=== PATIENT | female | born 1995 | race Two or more races ===

== ENCOUNTER 2024-07-12 09:34 | Outpatient (RCR) | payer MEDICAID, SELFPAY ==
--- NOTE | 2024-07-08 09:48 | XR_ITS ---
Examination: Biophysical profile, ultrasound Date and time of exam: July 08, 2024 0954 hours INDICATIONS: Diagnosis pelvic pain several months, diagnosis polyhydramnios Technique: Multiple transabdominal sonographic images of the pelvis abdomen obtained. Attention is directed to the breathing movement, gross body movement, amniotic fluid volume and tone. Findings: Amniotic fluid index 22.7 cm Total biophysical profile is 8 of 8. breathing movement is 2. Gross body movement is 2. tone is 2. Qualitative amniotic fluid volume is 2 Impression: Biophysical profile is 8 of 8.
[2024-07-08 11:34] VITALS: BP 131/64; PULSE 110; RESP 18; TEMP 36.4
--- NOTE | 2024-07-12 09:40 | XR_ITS ---
Examination: Biophysical profile, ultrasound Date and time of exam: July 12, 2024 at 0952 hours INDICATIONS: Diagnosis polyhydramnios, pelvic pain 4 months, amniotic fluid index 22.7 cm on July 08, 2024 Technique: Multiple transabdominal sonographic images of the pelvis abdomen obtained. Attention is directed to the breathing movement, gross body movement, amniotic fluid volume and tone. Findings: Amniotic fluid index 18.9 cm Total biophysical profile is 8 of 8. breathing movement is 2. Gross body movement is 2. tone is 2. Qualitative amniotic fluid volume is 2 Impression: Biophysical profile is 8 of 8.
[2024-07-12 10:37] VITALS: BP 138/68; PULSE 96; RESP 18; TEMP 36.7
== END 2024-07-12 23:59 | disposition home or self-care (01) ==
LOC: S4S1 09:34
PROVIDERS: PCP Family Medicine; Referring Provider Student in an Organized Health Care Education/Training Program; Visit Provider Student in an Organized Health Care Education/Training Program
DX: O40.3XX0 Polyhydramnios, third trimester, not applicable or unspecified (principal); Z3A.38 38 weeks gestation of pregnancy
CPT/HCPCS: 59025; 76819

== ENCOUNTER 2024-07-13 05:59 | Inpatient (IN) | payer MEDICAID, SELFPAY ==
[2024-07-13] VITALS (34 sets, daily range): BP systolic 101–135; BP diastolic 59–85; PULSE 86–108; RESP 17–22; TEMP 36.7–37.1; O2SAT 94–100; BMI 44.2
[2024-07-13 06:24] LABS: Basophils % (Auto) 0 % (0-2.5); Eosinophils # (Auto) 0.1 Thou/mm3 (0.0-0.5); Eosinophils % (Auto) 1 % (0-10); Hematocrit 32.5 % (36.0-46.0); Hemoglobin 10.6 g/dL (12.0-16.0); Immature Granulocytes % (Auto) 1 % (0-0); Immature Granulocytes Auto 0.05 Thou/mm3 (0.00-0.00); Lymphocytes # (Auto) 2.5 Thou/mm3 (1.0-4.8); Lymphocytes % (Auto) 31 % (10-50); Mean Corpuscular HGB Conc 32.6 g/dl (31.0-37.0); Mean Corpuscular Hemoglobin 26.3 pg (25.0-35.0); Mean Corpuscular Volume 81 fL (80-100); Monocytes # (Auto) 0.7 Thou/mm3 (0.0-0.8); Monocytes % (Auto) 8 % (0-12); Neutrophils # (Auto) 4.7 Thou/mm3 (1.8-7.7); Neutrophils % (Auto) 59 % (37-80); Nucleated Red Blood Cell % 0 /100 WBC (0); Platelet Count 339 Thou/mm3 (140-440); RDW Standard Deviation 40.4 fL (36.4-46.3); Red Blood Count 4.03 Miln/mm3 (4.00-5.20); White Blood Count 8.1 Thou/mm3 (3.6-11.0)
[2024-07-13 06:59] LABS: Syphilis Nonreactive (Nonreactive)
[2024-07-13] MEDS: METOCLOPRAMIDE INJ 5 MG/ML VIAL 2 ML IVP (07:20)
[2024-07-13] MEDS: CITRIC ACID/SODIUM CITR 15 ML UDC (BICITRA) 30 ML PO (07:21)
[2024-07-13] MEDS: FAMOTIDINE INJ 10 MG/ML VIAL 2 ML 20 MG IV (07:21)
[2024-07-13] MEDS: ceFAZolin/D5W 2 GM IV 2 GM/100 ML BAG IV (07:22)
--- NOTE | 2024-07-13 07:55 | PD.LDHP ---
Documentation for date of: 07/13/24 OB Labor/Induct. HPI History of Present Illness : 3 History of sections: Yes History of present illness: 29-year-old 3 para 2-0-0-2 at 39 weeks and 1 day admitted for repeat low-transverse . Patient denies any contractions, leaking, bleeding. This has been affected by polyhydramnios and macrosomia History of Present Dating criteria: LMP confirmed by 2nd trimester US Adequate Care: Yes Abnormal ultrasound findings: Anatomy within normal limit, polyhydramnios, anterior placenta low suspicion of PAS Labs Narrative: NIPT within normal limits GTT within normal limits Past Medical History Surgical History SURGICAL: Positive Section Meds Home Medications and Allergies Home Medications ?Medication ?Instructions ?Recorded ?Confirmed ?Type vit no.95-ferrous 1 tab PO QDAY 08/02/22 07/13/24 History fumarate 28 mg-folic acid 800 mcg tablet () Allergies Allergy/AdvReac Type Severity Reaction Status Date / Time No Known Allergies Allergy Verified 07/13/24 05:57 OB Exam Physical Exam Vital signs: Pulse BP Pulse Ox 100 127/78 97 07/13/24 06:09 07/13/24 06:09 07/13/24 07:43 Constitutional Constitutional: no acute distress Routine HEENT Exam Head: Present normocephalic and atraumatic Eye: Present EOMI and PERRL ENT: Present mucous membranes moist Routine Neck Exam Neck: Present supple and trachea midline Routine Cardiovascular Exam Cardiovascular: Present RRR Routine Abdominal Exam Abdominal: Present soft and normoactive bowel sounds Detailed Labor and Delivery Exam Comments: Closed heart tone category 1 Routine Extremities Exam Extremities: Present full ROM Routine Skin Exam Skin: Present intact, dry and warm Routine Neurological Exam Neurological: Present alert, oriented X3 and CN II-XII intact Routine Psychiatric Exam Psychiatric: Present normal affect and normal thought process OB Results Labs 07/13/24 05:45 Labs: Short CBC 07/13/24 Range/Units 05:45 WBC 8.1 (3.6-11.0) Thou/mm3 Hgb 10.6 L (12.0-16.0) g/dL Hct 32.5 L (36.0-46.0) % Plt Count 339 (140-440) Thou/mm3 Impressions Impression: 29-year-old 3 para 2-0-0-2 at 39 weeks and 1 day admitted for repeat low-transverse Hemoglobin 10.6 Polyhydramnios noted GTT within normal OB Assessment & Plan Additional Plan Additional Plan Comment: Admitted for repeat low-transverse Antibiotic prophylaxis DVT prophylaxis
[2024-07-13] MEDS: OXYTOCIN in NS 20 units 20 UNIT/1,000 ML BAG 125 UNIT IV ×2 (09:40→14:51)
[2024-07-13] MEDS: TRANEXAMIC ACID 1,000 MG IVPB 1,000 MG/100 ML BAG 200 MG IV (10:00)
[2024-07-13] MEDS: ACETAMINOPHEN IVPB 1,000 MG/100 ML VIAL 250 MG IV (10:35)
[2024-07-13] MEDS: fentaNYL CIT INJ 50 mCg/ML AMP 2ML IV (12:15)
[2024-07-13 13:56] LABS: Basophils % (Auto) 0 % (0-2.5); Eosinophils % (Auto) 0 % (0-10); Hematocrit 31.6 % (36.0-46.0); Hemoglobin 10.4 g/dL (12.0-16.0); Immature Granulocytes % (Auto) 1 % (0-0); Lymphocytes # (Auto) 1.2 Thou/mm3 (1.0-4.8); Lymphocytes % (Auto) 8 % (10-50); Mean Corpuscular HGB Conc 32.9 g/dl (31.0-37.0); Mean Corpuscular Hemoglobin 26.5 pg (25.0-35.0); Mean Corpuscular Volume 80 fL (80-100); Monocytes # (Auto) 0.9 Thou/mm3 (0.0-0.8); Monocytes % (Auto) 6 % (0-12); Neutrophils # (Auto) 13.2 Thou/mm3 (1.8-7.7); Neutrophils % (Auto) 86 % (37-80); Nucleated Red Blood Cell % 0 /100 WBC (0); Platelet Count 314 Thou/mm3 (140-440); Red Blood Count 3.93 Miln/mm3 (4.00-5.20); White Blood Count 15.4 Thou/mm3 (3.6-11.0)
--- NOTE | 2024-07-13 16:09 | PD.LDDELS ---
Data (Garcia) Data Hx Section: Yes Para: 2 Delivery Data (Garcia) Labor Data ROM Date: 07/13/24 ROM Time: 08:39 Rupture Type: AROM Delivery Data Labor Onset Stage 1 Date: 07/13/24 Labor Onset Stage 1 Time: 08:41 Labor Onset Stage 2 Date: 07/13/24 Labor Onset Stage 2 Time: 08:41 Delivery Date: 07/13/24 Delivery Time: 08:41 Gestational age (weeks): 39 Gestational age (days): 1 Placenta Delivery Date: 07/13/24 Placenta Delivery Time: 08:43 Delivered by: Kun Amaral Delivery nurse: Selena Banuelos Other staff at delivery: Nurse Other staff at delivery: Nursery Nurse Other staff at delivery: Rosanna Vizcarra Other staff at delivery: Cheyenne Raman Delivery Method Delivery: Delivery Type: Repeat Anesthesia Type Primary Anesthesia: Spinal Delivery Room Medications Other Intrapartum Medications: Yes Placenta Placenta Delivery: Manual Cord Sample: Cord Blood Obtained EBL Estimated blood loss (ml): 500 Umbilical Cord Umbilical Vessels: 3 Nuchal Cord: None Body Cord: None Schwertner Data (Garcia) Schwertner Data Infant Gender: Male Weight Grams: 3850 1 Minute Total: 9 5 Minute Total: 9
--- NOTE | 2024-07-13 16:12 | PD.GYNPROC ---
Operative Note - ORDER ENTRY TECHNICIAN Procedure Date of procedure: 07/13/24 Procedure Performed: Repeat low-transverse Indication: Previous x 2 Polyhydramnios Macrosomia Maternal morbid obesity Pre-Op diagnosis: Same Post-Op diagnosis: Extensive adhesions involving anterior surface of uterus bladder and omentum Anesthesia type: Spinal Procedure description: Informed consent was obtained and the patient was taken to the operating room.? Identity was confirmed by double identifiers and she was placed on the operating table.The abdomen and perineum were prepped in the usual sterile fashion and a Sanchez catheter was placed to continuous drainage.? Sterile drapes were applied.??A Pfannenstiel skin incision was made with a scalpel and carried to the subcutaneous fat up to the rectus fascia.? The rectus fascia was incised on either side of the midline and the incisions were extended bilaterally.? The fascia was gently dissected off the ventral surface of the rectus muscle both superiorly and inferiorly. Carefully a peritioneal window craeted hysterotomy incision made .upon examination circumferentially with the finger there with extensive adhesions between the anterior uterine wall and bladder .omental adhesions also seen to the anterior surface of the uterus . Using very small incisions with Metzenbaums forcep slow adhesiolysis was done and bladder flap was created . Omental adhesions were and hemostasis maintained by using plain gut free-tie . After ruling out any other adhesions , peritoneal window was extended bluntly with finger. Rupture of membranes revealed clear fluid. The baby was found in cephalic position. Given polyhydramnios. Head was found to be floating. With fundal pressure given by the family services assistant the head was stabilized and vacuum applied making sure no uterine wall is impinged with the vacuum. Pressure increased to 40 mmHg and steady pull x 1 successfully delivered the head. Thereafter the umbilical cord , was doubly clamped, divided and the was handed over to the waiting team.? placenta delivered by controlled cord traction . The interior of the uterus was now thorougly cleaned of all blood and debris and membranes.? 2 cavities and the uterus verified the? hysterotomy was closed using 0 vicryl suture in double layers. Once the repair was completed the hysterotomy was inspected, was noted to be adequately hemostatic . Muscle oozing stopped by bovie. The rectus fascia was repaired using Vicry 0 in a running fashion.? The subcutaneous layer was now, approximated with 3-0 vicryl in double layers.? All bleeding points were cauterized using the Bovie.?The skin was closed using 4-0 Monocryl in a subcuticular fashion.? The skin was cleaned and a sterile dressing was applied. The patient was now undraped, the abdomen and back were thoroughly cleaned and she was now transferred to the recovery room in a stable Estimated blood loss (ml): 500 Complications: none Surgical staff Operation Date: 07/26/24 07:45 <No data on this case meets the specified criteria> Diagnosis Problem List Completed Was Problem List Reviewed/Reconciled?: Yes
[2024-07-13] MEDS: IBUPROFEN TAB 400 MG TABLET 800 MG PO (19:37)
[2024-07-13] MEDS: ONDANSETRON INJ 2 MG/ML INJ 2 ML 4 MG IV (20:02)
[2024-07-13] MEDS: HYDROcodone/APAP 5/325 TABLET 2 TAB PO (23:48)
[2024-07-14 00:04] VITALS: BP 106/73; PULSE 105; RESP 19; TEMP 36.6; O2SAT 97
[2024-07-14 04:40] VITALS: BP 105/58; PULSE 107; RESP 20; TEMP 36.4; O2SAT 98
[2024-07-14] MEDS: IBUPROFEN TAB 400 MG TABLET 800 MG PO ×2 (04:46→17:22)
[2024-07-14 08:00] VITALS: BP 105/66; PULSE 109; RESP 18; TEMP 36.6; O2SAT 96
--- NOTE | 2024-07-14 08:05 | PD.LDPPPRG ---
Subjective Subjective Interval history: Patient was seen at the bedside is doing well. Denies any fever, nausea vomiting. Patient has been tolerating diet. Has limited ambulation and not passed gas yet Exam Vital Signs Temp Pulse Resp BP Pulse Ox O2 Del Method 97.6 F 107 H 20 105/58 L 98 Room Air 07/14/24 04:40 07/14/24 04:40 07/14/24 04:40 07/14/24 04:40 07/14/24 04:40 07/14/24 04:40 Constitutional Constitutional: no acute distress Routine HEENT Exam Head: Present normocephalic and atraumatic Eye: Present EOMI and PERRL ENT: Present mucous membranes moist Routine Neck Exam Neck: Present supple and trachea midline Routine Respiratory Exam Respiratory: Present chest non-tender, lungs clear, normal breath sounds and no resp distress Routine Cardiovascular Exam Cardiovascular: Present RRR Routine Abdominal Exam Abdominal: Present soft and normoactive bowel sounds Routine Extremities Exam Extremities: Present full ROM Routine Skin Exam Skin: Present intact, dry and warm Routine Neurological Exam Neurological: Present alert, oriented X3 and CN II-XII intact Routine Psychiatric Exam Psychiatric: Present normal affect and normal thought process Objective Labs 07/13/24 13:40 Labs: Laboratory Results - last 24 hr 07/13/24 07/13/24 05:45 13:40 WBC 15.4 H D RBC 3.93 L Hgb 10.4 L Hct 31.6 L MCV 80 MCH 26.5 MCHC 32.9 RDW Std Deviation 41.0 Plt Count 314 Neut % (Auto) 86 H Lymph % (Auto) 8 L [place] % (Auto) 6 Eos % (Auto) 0 Baso % (Auto) 0 Neut # (Auto) 13.2 H Lymph # (Auto) 1.2 [place] # (Auto) 0.9 H Eos # (Auto) 0.0 Baso # (Auto) 0.0 Immature Gran # (Auto) 0.10 H Absolute Nucleated RBC 0.00 Immature Gran % 1 H Nucleated RBC % 0 Blood Type O Positive Antibody Screen NEGATIVE Assessment & Plan Assessment Comment Assessment comment: 29-year-old status post repeat low-transverse , postop day 1 Vital signs stable Hemoglobin postop was 10.4 Meeting appropriate postop milestones Plan Comment Plan Comment: Continue postop care Anticipate discharge tomorrow Time Spent With Patient Time: Total time spent is greater than 50% in coordination of care (as documented) at patient's floor/unit and/or counseling patient:
[2024-07-14 11:40] VITALS: BP 111/69; PULSE 111; RESP 19; TEMP 36.4; O2SAT 98
[2024-07-14] MEDS: HYDROcodone/APAP 5/325 TABLET 2 TAB PO ×2 (11:44→20:55)
[2024-07-14 12:25] LABS: Basophils % (Auto) 0 % (0-2.5); Eosinophils # (Auto) 0.1 Thou/mm3 (0.0-0.5); Eosinophils % (Auto) 1 % (0-10); Hematocrit 29.1 % (36.0-46.0); Hemoglobin 9.4 g/dL (12.0-16.0); Immature Granulocytes % (Auto) 1 % (0-0); Immature Granulocytes Auto 0.06 Thou/mm3 (0.00-0.00); Lymphocytes # (Auto) 1.4 Thou/mm3 (1.0-4.8); Lymphocytes % (Auto) 15 % (10-50); Mean Corpuscular HGB Conc 32.3 g/dl (31.0-37.0); Mean Corpuscular Hemoglobin 26.3 pg (25.0-35.0); Mean Corpuscular Volume 82 fL (80-100); Monocytes # (Auto) 0.7 Thou/mm3 (0.0-0.8); Monocytes % (Auto) 7 % (0-12); Neutrophils # (Auto) 7.1 Thou/mm3 (1.8-7.7); Neutrophils % (Auto) 76 % (37-80); Nucleated Red Blood Cell % 0 /100 WBC (0); Platelet Count 295 Thou/mm3 (140-440); RDW Standard Deviation 41.7 fL (36.4-46.3); Red Blood Count 3.57 Miln/mm3 (4.00-5.20); White Blood Count 9.4 Thou/mm3 (3.6-11.0)
[2024-07-14 18:11] VITALS: BP 112/64; PULSE 102; RESP 17; TEMP 37.1; O2SAT 97
[2024-07-14 20:00] VITALS: BP 115/70; PULSE 106; RESP 18; TEMP 36.6
[2024-07-14] MEDS: DOCUSATE SOD 100 MG CAPSULE PO (21:43)
[2024-07-14] MEDS: SIMETHICONE 80 MG CHEW PO (21:43)
[2024-07-15] VITALS (10 sets, daily range): BP systolic 114–123; BP diastolic 65–80; PULSE 96–112; RESP 14–19; TEMP 36.4–36.8; O2SAT 96–98
[2024-07-15] MEDS: ACETAMINOPHEN 325 MG TABLET 650 MG PO ×4 (00:08→18:00)
[2024-07-15] MEDS: IBUPROFEN TAB 600 MG TABLET PO ×3 (00:58→19:38)
[2024-07-15] MEDS: DIPHTH,PERTUSS(ACELL),TET VAC 0.5 ML SYR IMi (09:26)
[2024-07-15] MEDS: DOCUSATE SOD 100 MG CAPSULE PO ×2 (09:26→21:18)
[2024-07-15] MEDS: INFLUENZA VIRUS QUADRIVALENT 0.5 ML SYRINGE IMi (09:27)
[2024-07-15 18:17] LABS: Basophils % (Auto) 0 % (0-2.5); Eosinophils # (Auto) 0.2 Thou/mm3 (0.0-0.5); Eosinophils % (Auto) 2 % (0-10); Hematocrit 29.4 % (36.0-46.0); Hemoglobin 9.7 g/dL (12.0-16.0); Immature Granulocytes % (Auto) 1 % (0-0); Lymphocytes # (Auto) 1.9 Thou/mm3 (1.0-4.8); Lymphocytes % (Auto) 19 % (10-50); Mean Corpuscular Hemoglobin 26.9 pg (25.0-35.0); Mean Corpuscular Volume 81 fL (80-100); Monocytes # (Auto) 0.5 Thou/mm3 (0.0-0.8); Monocytes % (Auto) 5 % (0-12); Neutrophils % (Auto) 73 % (37-80); Nucleated Red Blood Cell % 0 /100 WBC (0); Platelet Count 329 Thou/mm3 (140-440); RDW Standard Deviation 41.4 fL (36.4-46.3); Red Blood Count 3.61 Miln/mm3 (4.00-5.20); White Blood Count 9.7 Thou/mm3 (3.6-11.0)
--- NOTE | 2024-07-15 19:55 | PC.NURSE ---
@1954 Dr. Amaral called to inform of lab results and current status of pt. Per Dr. Amaral, keep the pt for further monitoring tonight and cancel discharge order placed in earlier.
[2024-07-16 03:33] VITALS: BP 120/77; PULSE 98; RESP 16; TEMP 36.6; O2SAT 96
[2024-07-16] MEDS: IBUPROFEN TAB 600 MG TABLET PO (06:35)
[2024-07-16] MEDS: ACETAMINOPHEN 325 MG TABLET 650 MG PO (06:36)
[2024-07-16 08:15] VITALS: BP 113/74; PULSE 88; RESP 17; TEMP 36.5; O2SAT 98
[2024-07-16] MEDS: DOCUSATE SOD 100 MG CAPSULE PO (08:31)
--- NOTE | 2024-07-16 08:41 | ESDS_ITS ---
DS: Providers Provider Date of admission: 07/13/24 05:59 Primary care physician: Stas Diamond MD Admitting Provider: Kun Amaral MD Attending Provider on Admission: Kun Amaral MD Consults: 07/13/24 07:57 Referral Routine Comment: Attending Provider on DC: Phoebe Ventura MD Discharging Provider: Phoebe Ventura MD Anticipated date of discharge: 07/16/24 DS: Diagnosis Discharge Diagnosis (1) delivery delivered: Status: Acute (2) Anemia affecting : Status: Acute Problem List Completed Was Problem List Reviewed/Reconciled?: Yes Summary/Hosp Course Brief History: 29-year-old 3 para 2-0-0-2 at 39 weeks and 1 day admitted for repeat low-transverse . Patient denies any contractions, leaking, bleeding. This has been affected by polyhydramnios and macrosomia Peripartum Data Delivery Method: Low Transverse Procedures: Procedures Operation Date: 07/13/24 07:45 Actual Procedure Side Surgeon p in OB Not Applicable Kun Amaral MD Operation Date: 07/26/24 07:45 <No data on this case meets the specified criteria> complications: other (Tachycardia. Anemia, status posttransfusion of 1 unit packed red blood cells) Status at Discharge Cognitive/behavioral status at discharge: Patient is alert and orient x 3 in apparent distress. Ready to be discharged. She will pump her breatmilk Functional status at discharge: independent ambulation Overall status at discharge: patient is progressing back to baseline Time Spent with Patient Time attestation: Total time spent providing and/or coordinating discharge services: Time spent: Less than 30 minutes Specific discharge activities: No heavy lifting, intercourse, douching, heavy exercise or bath tubs for six weeks. F/U in clinic in 1 and 6 weeks. Exam Vital Signs Temp Pulse Resp BP Pulse Ox O2 Del Method 97.8 F 98 16 120/77 96 Room Air 07/16/24 03:33 07/16/24 03:33 07/16/24 03:33 07/16/24 03:33 07/16/24 03:33 07/16/24 03:33 Constitutional Constitutional: no acute distress and cooperative Comments: Alert and orientated x 3, doing well. Wants to go home. Routine Abdominal Exam Abdominal: Present soft and normoactive bowel sounds Comments: Incision clean dry and intact fundus firm Routine Extremities Exam Extremities: Present full ROM Routine Skin Exam Skin: Present intact, dry and warm Routine Psychiatric Exam Psychiatric: Present normal affect and normal thought process Discharge Plan Plan Patient Disposition: HOME (Self Care) Disposition Comment: stable Prescriptions/Referrals Prescriptions/Med Rec: New acetaminophen 325 mg Tablet 650 mg PO Q4H PRN (Reason: See Comments) Qty: 90 0RF ibuprofen 400 mg Tablet 800 mg PO Q8H PRN (Reason: See Comments) Qty: 90 0RF Discontinued acetaminophen-codeine 300-15 mg tablet 1 tab PO Q12H PRN (Reason: pain) Qty: 14 0RF acetaminophen 650 mg tablet extended release 650 mg PO Q12H PRN (Reason: fever or pain) Qty: 60 0RF No Action ibuprofen 800 mg tablet 800 mg PO Q8H PRN (Reason: pain) Qty: 30 0RF PNV cmb#95-ferrous fumarate-FA [] 28 mg iron- 800 mcg tablet 1 tab PO QDAY Patient Comments: TAKE 1 TABLET BY MOUTH EVERY DAY Referrals: Stas Diamond MD [Primary Care Provider] - Patient/Caregiver Discharge Instructions Discharge Activity: resume usual activities Education Materials: Understanding Blues, Nutrition While , C Section Dc Print Language: Indonesian Stand Alone Forms: Katerina Award Info., Patient Portal Info Letter Vaccines Vaccines Given During Stay: Influenza and TDaP Discharge Order Discharge Orders: Discharge (Routine); Ordered 07/16/24 Ordered By: Phoebe Ventura Planned Discharge Date 07/16/24 (2) Anemia affecting Qualifiers: Trimester: third trimester Qualified Code(s): O99.013 - Anemia complicating , third trimester
== END 2024-07-16 11:16 | disposition home or self-care (01) | DRG 540 ==
LOC: S4SX 06:21 → S4NX 08:17
PROVIDERS: Admitting Provider Student in an Organized Health Care Education/Training Program; PCP Family Medicine; Visit Provider Student in an Organized Health Care Education/Training Program
PROC: 10D00Z1 Extraction of Products of Conception, Low, Open Approach (ICD-10-PCS; CPT 59514; principal; 2024-07-13 07:30)
DX: O34.211 Maternal care for low transverse scar from previous cesarean delivery (principal); O40.3XX0 Polyhydramnios, third trimester, not applicable or unspecified; Z3A.39 39 weeks gestation of pregnancy; Z37.0 Single live birth; O99.214 Obesity complicating childbirth; E66.01 Morbid (severe) obesity due to excess calories; O36.63X0 Maternal care for excessive fetal growth, third trimester, not applicable or unspecified; O99.02 Anemia complicating childbirth; K66.0 Peritoneal adhesions (postprocedural) (postinfection); D64.9 Anemia, unspecified
CPT/HCPCS: 36415; 85025; 86780; 86850; 86900; 86901; 86923; 90686; 90715; A4649; J0131; J0689; J2250; J2274; J2371; J2405; J2590; J2765; J3010; J3490; P9016; A9270; J2270; J9060

== ENCOUNTER 2025-02-11 14:35 | Emergency (ER) | payer MEDICAID, SELFPAY ==
[2025-02-11 14:36] VITALS: BMI 38.7
[2025-02-11 15:05] VITALS: BP 157/84; PULSE 109; RESP 18; TEMP 36.9; O2SAT 98
--- NOTE | 2025-02-11 15:26 | XR_ITS ---
Examination: Complete OB ultrasound, less than 14 weeks, transabdominal Date and time of exam: February 11, 2025, 6003 hours INDICATIONS: Vaginal bleeding beginning 3 weeks ago Technique: Obstetrical ultrasound images less than 14 weeks performed via transabdominal imaging Findings: Uterus 11.7 cm no uterine mass or intrauterine gestation Endometrial stripe 0.4 cm Right ovary 2.9 cm arterial flow. Left ovary 2.7 cm arterial flow IMPRESSION: No discrete uterine mass No intrauterine gestation
--- NOTE | 2025-02-11 15:26 | EKG_ITS ---
[facility] Test Date: 2025-02-11 Pat Name: KAL WHITE Department: Room: - Gender: Female [employer] Operator: : 1995 Requested By: Giorgio Dumont Order Number: [id number] Reading MD: Giorgio Dumont Measurements Intervals Davin Rate: 99 P: 55 WA: 167 QRS: 7 QRSD: 94 T: 27 QT: 338 QTc: 435 Interpretive Statements SINUS RHYTHM POSSIBLE LEFT ATRIAL ENLARGEMENT [-0.1mV P-WAVE IN V1/V2] LOW QRS VOLTAGE IN PRECORDIAL LEADS [QRS DEFLECTION < 1.0 mV IN CHEST LEADS] POSSIBLE RIGHT VENTRICULAR CONDUCTION DELAY [RSR (QR) IN V1/V2] No previous ECG available for comparison /store/[email or web address]/[id number].pdf
--- NOTE | 2025-02-11 15:26 | XR_ITS ---
Examination: Abdomen sonogram, Limited Date and time of exam: February 11, 2025, 1558 hours INDICATIONS: Abdominal and right shoulder pain today Technique: Real-time oliva scale transabdominal sonographic images of the upper abdomen obtained. Findings: Normal gallbladder. Normal common bile duct 0.4 cm Pancreatic head 2.6 cm Liver 19.1 cm fatty infiltration no focal liver lesions Normal hepatopedal portal venous flow Patent IVC IMPRESSION: Normal gallbladder Moderate hepatomegaly fatty infiltration no focal liver lesions
--- NOTE | 2025-02-11 15:31 | PD.EDCHEST ---
ED Chest Pain RME/HPI General Chief Complaint: Extremity Injury, Upper Stated Complaint: RIGHT SHOULDER PAIN X 1 WEEK Time Seen by Provider: 02/11/25 15:13 Arrival date/time: 02/11/25 14:35 29-year-old female G4 A1 with 3 living babies all delivered via whose last menstrual period was November 24 was seen at a clinic in [place] with an ultrasound which did not show a fetus in her uterus and was advised that it may be too early however she could have an ectopic and was supposed to follow-up a week after however patient began bleeding shortly after being seen in the clinic and she suspected she was passing a miscarriage. Patient's bleeding had just stopped yesterday. Patient began to feel right upper chest pain which is pleuritic in nature. Patient states pain is not reproducible or worse with certain movements. Denies pelvic pain, fever, vomiting, shortness of breath. Limitations: no limitations Related Data Home Medications ?Medication ?Instructions ?Recorded ?Confirmed vit no.95-ferrous 1 tab PO QDAY 08/02/22 07/13/24 fumarate 28 mg-folic acid 800 mcg tablet () Previous Rx's ?Medication ?Instructions ?Recorded ibuprofen 800 mg tablet 800 mg PO Q8H PRN pain #30 tabs 10/17/22 acetaminophen 325 mg tablet 650 mg (2 x 325 mg) PO Q4H PRN See 07/16/24 Comments #90 tabs ibuprofen 400 mg tablet 800 mg (2 x 400 mg) PO Q8H PRN See 07/16/24 Comments #90 tabs Allergies Allergy/AdvReac Type Severity Reaction Status Date / Time No Known Allergies Allergy Verified 07/13/24 05:57 Review of Systems Cardiovascular Cardiovascular: Reports chest pain, Denies dyspnea, Denies leg edema and Denies paroxysmal nocturnal dyspnea Respiratory Respiratory: Denies dyspnea Genitourinary Genitourinary: Denies urinary hesitancy, Denies urinary urgency and Denies vaginal discharge Musculoskeletal Musculoskeletal: Denies muscle weakness, Denies numbness and Denies tingling Neurologic Neurologic: Denies numbness and Denies tingling ED Exam General Limitations: Present no limitations General appearance: Present alert and in no apparent distress Head Head exam: Present atraumatic Eye Eye exam: Present normal appearance, PERRL and EOMI ENT ENT exam: Present normal exam, normal oropharynx and mucous membranes moist Neck Neck exam: Present normal inspection, full ROM and trachea midline Chest Chest inspection: Present normal inspection and symmetric chest wall rise Respiratory Respiratory exam: Present normal lung sounds bilaterally Cardiovascular Cardiovascular exam: Present regular rate, normal rhythm and normal heart sounds Abdominal Exam Abdominal exam: Present soft and normal bowel sounds Extremities Exam Extremities exam: Present normal inspection (No gross deformity of R shoulder. NTTP to R shoulder. FROM, Strength 5/5, SILT to R shoulder. ) Back Exam Back exam: Present normal inspection and full ROM Neurological Exam Neurological exam: Present alert, oriented X3 and CN II-XII intact Psychiatric Psychiatric exam: Present normal affect and normal mood Skin Skin exam: Present warm, dry, intact and normal color Course Quality Measures none Orders Category Date Time Status EKG (ED ONLY) *Do not use* NOW Care 02/11/25 15:28 Completed EKG (ED Only) Stat Exams 02/11/25 15:26 Draft US OB <= 14 weeks fetus Stat Exams 02/11/25 15:26 Ordered US abdomen limited Stat Exams 02/11/25 15:26 Ordered XR chest 1V portable Stat Exams 02/11/25 16:01 Ordered ABO/RH Type Stat Lab 02/11/25 15:26 Ordered Amylase Stat Lab 02/11/25 15:57 Received Beta HCG,Quantitative Stat Lab 02/11/25 15:57 Received CBC Stat Lab 02/11/25 15:57 Completed CMP [Comprehensive Metabolic Panel] Stat Lab 02/11/25 15:57 Received D-Dimer Stat Lab 02/11/25 15:57 Received UA, C/S IF [Urinalysis, C/S if Indicated] Stat Lab 02/11/25 15:42 Received Acetaminophen Tab [Tylenol Tab] Med 02/11/25 16:04 Discontinued 650 mg PO X1 ONE Vital Signs Vital signs: Vital Signs Temperature 98.4 F 02/11/25 15:05 Pulse Rate 109 H 02/11/25 15:05 Respiratory Rate 18 02/11/25 15:05 Blood Pressure 157/84 H 02/11/25 15:05 Pulse Oximetry (%) 98 02/11/25 15:05 Oxygen Delivery Method Oxy Mask 02/11/25 15:05 Chest Pain Patient data External records reviewed:: [facility] previous records Clinical information provided by:: patient Social determinants that could affect healthcare access:: none Patient has the following chronic illnesses:: no chronic illness How is presenting disease/condition affected by chronic disease/condition?: no chronic disease Evaluation data The following diagnostics were reviewed and interpreted by me:: lab results, radiology exam(s) and EKG tracing(s) Lab and/or radiology exams considered but not ordered:: labs and radiology exams considered Medications / Prescriptions Medication administrations:: Medication Administration History Discontinued Medications Acetaminophen (Acetaminophen 325 Mg Tablet) 650 mg PO X1 ONE Stop: 02/11/25 16:05 Diagnosis Chest Pain Differential Diagnosis: costochondritis and biliary colic Admission Indicated Admission indicated?: not indicated Admission Request Was there a request for admission?: No Disposition Plan Disposition Plan: Discharge Discharge Attestation Discharge Attestation: The patient and all family members were given an opportunity to ask questions and understood the discharge instructions. Discharge instructions specifically effects, indications for sooner follow up or return to the emergency department, and the expected course of current diagnosis. Patient condition: Stable Discharge Plan Prescriptions/Referrals Prescriptions/Med Rec: No Action ibuprofen 800 mg tablet 800 mg PO Q8H PRN (Reason: pain) Qty: 30 0RF PNV no.95-ferrous fumarate-FA [] 28 mg iron- 800 mcg tablet 1 tab PO QDAY Patient Comments: TAKE 1 TABLET BY MOUTH EVERY DAY acetaminophen 325 mg Tablet 650 mg PO Q4H PRN (Reason: See Comments) Qty: 90 0RF ibuprofen 400 mg Tablet 800 mg PO Q8H PRN (Reason: See Comments) Qty: 90 0RF Referrals: Stas Diamond MD [Primary Care Provider, Family Practice] - In 1 week Patient/Caregiver Discharge Instructions Print Language: Greenlandic
[2025-02-11 15:50] LABS: Collection Type, Urine Clean Catch
--- NOTE | 2025-02-11 16:01 | XR_ITS ---
Examination: PA chest single view TECHNIQUE: Upright PA chest single view Date and time: February 11, 2025 1640 hours INDICATIONS: Chest and shoulder pain beginning one week ago. FINDINGS: Normal heart size No pulmonary edema or lobar pneumonia. The osseous structures are intact IMPRESSION: No lobar pneumonia identified
[2025-02-11 16:16] LABS: Basophils # (Auto) 0.0 Thou/mm3 (0.0-0.2); Basophils % (Auto) 1 % (0-2.5); Eosinophils # (Auto) 0.1 Thou/mm3 (0.0-0.5); Eosinophils % (Auto) 1 % (0-10); Hematocrit 37.3 % (36.0-46.0); Hemoglobin 12.4 g/dL (12.0-16.0); Immature Granulocytes Auto 0.04 Thou/mm3 (0.00-0.00); Lymphocytes # (Auto) 1.6 Thou/mm3 (1.0-4.8); Lymphocytes % (Auto) 24 % (10-50); Mean Corpuscular HGB Conc 33.2 g/dl (31.0-37.0); Mean Corpuscular Hemoglobin 29.5 pg (25.0-35.0); Mean Corpuscular Volume 89 fL (80-100); Monocytes # (Auto) 0.4 Thou/mm3 (0.0-0.8); Monocytes % (Auto) 6 % (0-12); Neutrophils # (Auto) 4.4 Thou/mm3 (1.8-7.7); Neutrophils % (Auto) 68 % (37-80); Nucleated Red Blood Cell # 0.00 Thou/mm3 (0.00-0.00); Nucleated Red Blood Cell % 0 /100 WBC (0); Platelet Count 314 Thou/mm3 (140-440); RDW Standard Deviation 43.5 fL (36.4-46.3); Red Blood Count 4.21 Miln/mm3 (4.00-5.20); White Blood Count 6.5 Thou/mm3 (3.6-11.0)
[2025-02-11 16:20] LABS: Bilirubin,Urine Negative (Negative); Blood,Urine Negative (Negative); Clarity,Urine Clear (Clear/Hazy); Color,Urine Lt-Yellow (Lt Yel-Yel); Culture Indicated,Urine Not Indicated; Glucose, Urine Negative (Negative); Ketones,Urine Negative (Negative); Leukocyte Esterase,Urine Negative (Negative); Nitrite,Urine Negative (Negative); PH,Urine 6.5 (5.0-7.0); Protein,Urine Negative (Neg - Trace); RBC,Urine 2 /hpf (0-3); Specific Gravity,Urine 1.013 (1.001-1.035); Squamous Epithelial Cell,Urine 2 /hpf (0-5); Urobilinogen,Urine Negative mg/dL (0.0-1.0); WBC,Urine 2 /hpf (0-5)
[2025-02-11] MEDS: ACETAMINOPHEN 325 MG TABLET 650 MG PO (16:29)
[2025-02-11 16:34] LABS: Alanine Aminotransferase 19 U/L (10-49); Albumin, Serum 4.5 gm/dL (3.5-5.0); Albumin/Globulin Ratio 1.7 (1.2-2.2); Alkaline Phosphatase 80 U/L (46-116); Amylase 53 U/L (30-118); Anion Gap 9 (7-16); Aspartate Amino Transferase 17 U/L (0-34); BUN/Creatinine Ratio 13 Ratio (12-20); Beta HCG,Quantitative 145 mIU/mL (<5.0); Bilirubin,Total 0.5 mg/dL (0.3-1.2); Blood Urea Nitrogen 9 mg/dL (9-23); Calcium 10.0 mg/dL (8.3-10.6); Calcium (Corrected) 10.0 mg/dL (8.5-10.1); Carbon Dioxide 29.4 mMol/L (20.0-31.0); Chloride 102 mMol/L (98-107); Creatinine (Component) 0.7 mg/dL (0.6-1.3); Estimated Creatinine Clearance 150.8 mL/min (>60); Globulin 2.7 gm/dL (2.3-3.5); Glucose 100 mg/dL (74-106); Osmolality,Calculated 278 (275-295); Potassium 4.4 mMol/L (3.4-5.1); Sodium 140 mMol/L (136-145); Total Protein 7.2 gm/dL (5.7-8.2); eGFR > 60 See Note
[2025-02-11 16:40] LABS: D-Dimer 1330 ng/mL (<600)
--- NOTE | 2025-02-11 16:54 | PD.EDRME ---
Rapid Medical Screening Exam RME Arrival date/time: 02/11/25 14:35 29-year-old female G4 A1 with 3 living babies all delivered via whose last menstrual period was November 24 was seen at a clinic in [place] with an ultrasound which did not show a fetus in her uterus and was advised that it may be too early however she could have an ectopic and was supposed to follow-up a week after however patient began bleeding shortly after being seen in the clinic and she suspected she was passing a miscarriage. Patient's bleeding had just stopped yesterday. Patient began to feel right upper chest pain which is pleuritic in nature. Patient states pain is not reproducible or worse with certain movements. Denies pelvic pain, fever, vomiting, shortness of breath. Chief Complaint: Extremity Injury, Upper Time Seen by Provider: 02/11/25 15:13 Vital signs: Vital Signs Temperature 98.4 F 02/11/25 15:05 Pulse Rate 109 H 02/11/25 15:05 Respiratory Rate 18 02/11/25 15:05 Blood Pressure 157/84 H 02/11/25 15:05 Pulse Oximetry (%) 98 02/11/25 15:05 Oxygen Delivery Method Oxy Mask 02/11/25 15:05 Vital signs reviewed by provider: Yes
--- NOTE | 2025-02-11 17:15 | PD.EDCHEST ---
ED Chest Pain RME/HPI General Chief Complaint: Extremity Injury, Upper Stated Complaint: RIGHT SHOULDER PAIN X 1 WEEK Time Seen by Provider: 02/11/25 15:13 Arrival date/time: 02/11/25 14:35 29-year-old female G4 A1 with 3 living babies all delivered via whose last menstrual period was November 24 was seen at a clinic in [place] with an ultrasound which did not show a fetus in her uterus and was advised that it may be too early however she could have an ectopic and was supposed to follow-up a week after however patient began bleeding shortly after being seen in the clinic and she suspected she was passing a miscarriage. Patient's bleeding had just stopped yesterday. Patient began to feel right upper chest pain which is pleuritic in nature. Patient states pain is not reproducible or worse with certain movements. Denies pelvic pain, fever, vomiting, shortness of breath. Limitations: no limitations RME / HPI RME / HPI narrative: 02/11/25 14:35 29-year-old female G4 A1 with 3 living babies all delivered via whose last menstrual period was November 24 was seen at a clinic in [place] with an ultrasound which did not show a fetus in her uterus and was advised that it may be too early however she could have an ectopic and was supposed to follow-up a week after however patient began bleeding shortly after being seen in the clinic and she suspected she was passing a miscarriage. Patient's bleeding had just stopped yesterday. Patient began to feel right upper chest pain which is pleuritic in nature. Patient states pain is not reproducible or worse with certain movements. Denies pelvic pain, fever, vomiting, shortness of breath. Pain location: right chest Exacerbating factors: inspiration Related Data Home Medications ?Medication ?Instructions ?Recorded ?Confirmed vit no.95-ferrous 1 tab PO QDAY 08/02/22 07/13/24 fumarate 28 mg-folic acid 800 mcg tablet () Previous Rx's ?Medication ?Instructions ?Recorded ibuprofen 800 mg tablet 800 mg PO Q8H PRN pain #30 tabs 10/17/22 acetaminophen 325 mg tablet 650 mg (2 x 325 mg) PO Q4H PRN See 07/16/24 Comments #90 tabs ibuprofen 400 mg tablet 800 mg (2 x 400 mg) PO Q8H PRN See 07/16/24 Comments #90 tabs acetaminophen 500 mg capsule 500 mg PO Q6H PRN pain (scale 02/11/25 score 1-3) #10 caps Allergies Allergy/AdvReac Type Severity Reaction Status Date / Time No Known Allergies Allergy Verified 07/13/24 05:57 Review of Systems Review of Systems Systems Reviewed: All systems reviewed, normal except as documented Cardiovascular Cardiovascular: Denies dyspnea and Denies leg edema Respiratory Respiratory: Denies dyspnea and Reports pain on inspiration Musculoskeletal Musculoskeletal: Denies muscle weakness and Denies numbness Neurologic Neurologic: Denies numbness ED Exam General Limitations: Present no limitations General appearance: Present alert and in no apparent distress Head Head exam: Present atraumatic Eye Eye exam: Present normal appearance, PERRL and EOMI ENT ENT exam: Present normal exam, normal oropharynx and mucous membranes moist Neck Neck exam: Present normal inspection, full ROM and trachea midline Chest Chest inspection: Present normal inspection and symmetric chest wall rise Respiratory Respiratory exam: Present normal lung sounds bilaterally Cardiovascular Cardiovascular exam: Present regular rate, normal rhythm and normal heart sounds Abdominal Exam Abdominal exam: Present soft and normal bowel sounds; Absent tenderness or Gutierrez's sign Extremities Exam Extremities exam: Present normal inspection and full ROM Expanded Upper Extremity Exam Shoulder exam: Present normal inspection and full ROM; Absent tenderness, swelling or ecchymosis Expanded Lower Extremity Exam Upper leg exam: Present normal inspection; Absent tenderness or swelling Back Exam Back exam: Present normal inspection and full ROM Neurological Exam Neurological exam: Present alert, oriented X3 and CN II-XII intact Psychiatric Psychiatric exam: Present normal affect and normal mood Skin Skin exam: Present warm, dry, intact and normal color Course Orders Category Date Time Status EKG (ED ONLY) *Do not use* NOW Care 02/11/25 15:28 Completed EKG (ED Only) Stat Exams 02/11/25 15:26 Draft US OB <= 14 weeks fetus Stat Exams 02/11/25 15:26 Completed US abdomen limited Stat Exams 02/11/25 15:26 Completed XR chest 1V portable Stat Exams 02/11/25 16:01 Completed ABO/RH Type Stat Lab 02/11/25 16:19 Completed Amylase Stat Lab 02/11/25 15:57 Completed Beta HCG,Quantitative Stat Lab 02/11/25 15:57 Completed CBC Stat Lab 02/11/25 15:57 Completed CMP [Comprehensive Metabolic Panel] Stat Lab 02/11/25 15:57 Completed D-Dimer Stat Lab 02/11/25 15:57 Completed UA, C/S IF [Urinalysis, C/S if Indicated] Stat Lab 02/11/25 15:42 Completed Acetaminophen Tab [Tylenol Tab] Med 02/11/25 16:04 Discontinued 650 mg PO X1 ONE Vital Signs Vital signs: Vital Signs Temperature 98.4 F 02/11/25 15:05 Pulse Rate 109 H 02/11/25 15:05 Respiratory Rate 18 02/11/25 15:05 Blood Pressure 157/84 H 02/11/25 15:05 Pulse Oximetry (%) 98 02/11/25 15:05 Oxygen Delivery Method Oxy Mask 02/11/25 15:05 Chest Pain MDM Narrative MDM Narrative:: 29 yo F LMP November 24, presents to ER after having an US 2.5 weeks ago which did not confirm an IUP for her and subsequently has been having vaginal bleeding which began the day after and lasted until yesterday when her bleeding self resolved. Pt here today for right upper chest pain and shoulder pain worse with inspiration and non traumatic in nature without abdominal or pelvic pain. Concern for incomplete AB vs less likely ectopic complicated by R sided pleuritic CP/anterior shoulder pain of unclear e/o CXR without acute cardiopulmonary abn No LE edema to suggest DVT D-dimer elevated and pending CTA to exclude PE EKG without acute ischemia or arrythmia Remainder of labs without severe metabolic or electrolyte abn US pelvis without visualized gestational sac or adnexa masses or significant free fluid, HCG is positive at 145 US abdomen limited without acute hepatobiliary obstruction or acute abnormality Shoulder pain is unlikely MSK given lack of TTP or pain with ROM or hx of trauma Plan for continued pain management prn, if CTA is negative pt will be safe for close OP f/u with pmd, strict ER return precautions advised Patient data External records reviewed:: [facility] previous records Clinical information provided by:: patient Social determinants that could affect healthcare access:: none How is presenting disease/condition affected by chronic disease/condition?: no chronic disease Evaluation data The following diagnostics were reviewed and interpreted by me:: lab results and radiology exam(s) Medications / Prescriptions Medication administrations:: Medication Administration History Discontinued Medications Acetaminophen (Acetaminophen 325 Mg Tablet) 650 mg PO X1 ONE Stop: 02/11/25 16:05 Last Admin: 02/11/25 16:29 Dose: 650 mg Documented By: OA Consultations Consultation(s) initiated? (list below): No Diagnosis Chest Pain Differential Diagnosis: stable angina, atypical chest pain, st elevation myocardial infarction, costochondritis, chest pain and other (PE) Most likely diagnosis given after review of the tests above:: Right shoulder pain and Right sided pleuritic chest pain Admission Indicated Admission indicated?: not indicated Admission Request Was there a request for admission?: No Disposition Plan Disposition Plan: other (specify) (signed out to DUSTIN Foss) Discharge Plan Plan Patient Disposition: HOME (Self Care) Discharge Disposition comment: Stable Prescriptions/Referrals Prescriptions/Med Rec: New acetaminophen 500 mg capsule 500 mg PO Q6H PRN (Reason: pain (scale score 1-3)) Qty: 10 0RF No Action ibuprofen 800 mg tablet 800 mg PO Q8H PRN (Reason: pain) Qty: 30 0RF PNV no.95-ferrous fumarate-FA [] 28 mg iron- 800 mcg tablet 1 tab PO QDAY Patient Comments: TAKE 1 TABLET BY MOUTH EVERY DAY acetaminophen 325 mg Tablet 650 mg PO Q4H PRN (Reason: See Comments) Qty: 90 0RF ibuprofen 400 mg Tablet 800 mg PO Q8H PRN (Reason: See Comments) Qty: 90 0RF Referrals: Stas Diamond MD [Primary Care Provider, Family Practice] - In 1 week Problem List Clinical Impression: Chest pain, pleuritic Patient/Caregiver Discharge Instructions Discharge Activity: as per physical therapy Education Materials: ED Chest Pain, Noncardiac Additional Instructions: Thank you for the opportunity for serving you today. You are stable for discharged . You are advised to: Follow-up with your PCP in 1 to 2 days Return to ED for worsening of symptoms, shortness of breath, fever, worsening chest pain, Increase oral fluids Take medication as prescribed Your chances of having pulmonary embolism at this time is very low however we offer you a CT angiogram of your chest and you can come back anytime if you decided to have 1 taken. Print Language: Romanian Stand Alone Forms: Katerina Award Info., Patient Portal Info Letter
--- NOTE | 2025-02-11 19:18 | EDNOTE_ITS ---
Emergency Room Addendum Addendum Narrative: 29-year-old female patient who was endorsed to me by outgoing LUTHER Marin pending CT angiogram of the chest. I reviewed patient's history physical exam and examined the patient myself, patient is not having any tenderness on palpation except for deep breathing and coughing. Has been ongoing for 1 week. Her pain is more on the left upper chest, underneath her clavicle, severity mild. Denies any cough denies any shortness of breath denies any diaphoresis. Patient also denies any history of PE, denies any family history of PE, patient is not taking any cancer medication, not taking any oral contraceptives, was recently diagnosed with , however she was bleeding for 1 to 2 weeks, last bleeding yesterday. She told me that her hCG is really lower than 2 weeks ago taken from different emergency room. She denies any trauma to the chest. I reviewed patient's laboratory workup which came back unremarkable except for D-dimer that is mildly elevated at 1330. Ultrasound of the abdomen and ultrasound of all came back unremarkable. Chest x-ray came back unremarkable also. Patient was offered to have CT angiogram of the chest however patient told me that she will come back if she decided to have one taken. Patient is very knowledgeable [facility] 2[place] regarding her decision. I told her that if her symptoms persist for 2-3 days she needs to come back for CT angiogram. Patient agrees with the plan. She is satting 98% on room air, blood pressure 127/84, heart rate 109.
[2025-02-11 19:23] VITALS: BP 130/93; PULSE 99; RESP 18; O2SAT 99
--- NOTE | 2025-02-12 14:52 | EDRME_ITS ---
Rapid Medical Screening Exam RME Arrival date/time: 02/11/25 14:35 02/11/25 14:35 29-year-old female G4 A1 with 3 living babies all delivered via whose last menstrual period was November 24 was seen at a clinic in [place] with an ultrasound which did not show a fetus in her uterus and was advised that it may be too early however she could have an ectopic and was supposed to follow-up a week after however patient began bleeding shortly after being seen in the clinic and she suspected she was passing a miscarriage. Patient's bleeding had just stopped yesterday. Patient began to feel right upper chest pain which is pleuritic in nature. Patient states pain is not reproducible or worse with certain movements. Denies pelvic pain, fever, vomiting, shortness of breath. Chief Complaint: Extremity Injury, Upper Time Seen by Provider: 02/11/25 15:13 Vital signs: Vital Signs Temperature 98.4 F 02/11/25 15:05 Pulse Rate 109 H 02/11/25 15:05 Respiratory Rate 18 02/11/25 15:05 Blood Pressure 157/84 H 02/11/25 15:05 Pulse Oximetry (%) 98 02/11/25 15:05 Oxygen Delivery Method Oxy Mask 02/11/25 15:05 RME Narrative: 02/11/25 14:35 29-year-old female G4 A1 with 3 living babies all delivered via whose last menstrual period was November 24 was seen at a clinic in [place] with an ultrasound which did not show a fetus in her uterus and was advised that it may be too early however she could have an ectopic and was supposed to follow-up a week after however patient began bleeding shortly after being seen in the clinic and she suspected she was passing a miscarriage. Patient's bleeding had just stopped yesterday. Patient began to feel right upper chest pain which is pleuritic in nature. Patient states pain is not reproducible or worse with certain movements. Denies pelvic pain, fever, vomiting, shortness of breath.
--- NOTE | 2025-02-16 15:52 | EDNOTE_ITS ---
Emergency Room Addendum Addendum Narrative: Addendum was already done. Patient was transferred care to [facility] for disposition only. For complete chart refer to the notes of Tomas Alvares PA
--- NOTE | 2025-02-16 15:52 | PD.EDADDENDU ---
Emergency Room Addendum Addendum Narrative: Addendum was already done. Patient was transferred care to [facility] for disposition only. For complete chart refer to the notes of Tomas Alvares PA
--- NOTE | 2025-04-12 14:13 | PD.EDCHEST ---
ED Chest Pain RME/HPI General Chief Complaint: Extremity Injury, Upper Stated Complaint: RIGHT SHOULDER PAIN X 1 WEEK Time Seen by Provider: 02/11/25 15:13 Arrival date/time: 02/11/25 14:35 RME / HPI RME / HPI narrative: 02/11/25 14:35 29-year-old female G4 A1 with 3 living babies all delivered via whose last menstrual period was November 24 was seen at a clinic in [place] with an ultrasound which did not show a fetus in her uterus and was advised that it may be too early however she could have an ectopic and was supposed to follow-up a week after however patient began bleeding shortly after being seen in the clinic and she suspected she was passing a miscarriage. Patient's bleeding had just stopped yesterday. Patient began to feel right upper chest pain which is pleuritic in nature. Patient states pain is not reproducible or worse with certain movements. Denies pelvic pain, fever, vomiting, shortness of breath. Related Data Home Medications ?Medication ?Instructions ?Recorded ?Confirmed vit no.95-ferrous 1 tab PO QDAY 08/02/22 07/13/24 fumarate 28 mg-folic acid 800 mcg tablet () Previous Rx's ?Medication ?Instructions ?Recorded ibuprofen 800 mg tablet 800 mg PO Q8H PRN pain #30 tabs 10/17/22 acetaminophen 325 mg tablet 650 mg (2 x 325 mg) PO Q4H PRN See 07/16/24 Comments #90 tabs ibuprofen 400 mg tablet 800 mg (2 x 400 mg) PO Q8H PRN See 07/16/24 Comments #90 tabs acetaminophen 500 mg capsule 500 mg PO Q6H PRN pain (scale 02/11/25 score 1-3) #10 caps Allergies Allergy/AdvReac Type Severity Reaction Status Date / Time No Known Allergies Allergy Verified 07/13/24 05:57 Review of Systems Review of Systems Systems Reviewed: All systems reviewed, normal except as documented ED Exam Narrative Physical exam: Constitutional: Patient alert and oriented. Well appearing. No acute distress. Not toxic appearing. Head: Normocephalic, atraumatic. Eyes: Periorbital regions bilaterally normal to inspection. Conjunctiva clear bilaterally. Sclera anicteric bilaterally. Pupils equal, round, reactive to light bilaterally. Extraocular movements intact bilaterally. Mouth/Throat: Mucous membranes moist. No stridor or muffled voice. No trismus. Handling secretions without difficulty. Airway widely patent. Neck: Supple. Trachea midline. No JVD. No nuchal rigidity. Normal range of motion. Respiratory: Normal effort. No accessory muscle use or respiratory distress. Lungs clear to auscultation bilaterally without rhonchi, wheezes, or crackles. Cardiovascular: RRR. Normal S1/S2. No murmurs or rubs. Radial pulses intact bilaterally. Abdomen: Soft. Non-distended. Non-tender throughout. No pulsatile mass. No guarding or rebound. Negative Gutierrez?s sign. Negative McBurney?s point tenderness. Negative Rovsing?s. Back: No midline tenderness or step-offs. No CVA tenderness to palpation bilaterally. Upper Extremities: No gross deformities. Lower Extremities: No gross deformities. No edema or calf tenderness. Neuro: Speech normal. No gross motor or sensory deficits to upper or lower extremities bilaterally. GCS 15. CN II?XII grossly intact. Skin: Warm, dry, normal color. Psych: Normal affect. Cooperative. Normal insight. Course Course Course Narrative: Patient was handed off to DUSTIN Palm with final ED dispo to physician pending ED course Quality Measures none Orders Category Date Time Status EKG (ED ONLY) *Do not use* NOW Care 02/11/25 15:28 Completed EKG (ED Only) Stat Exams 02/11/25 15:26 Draft US OB <= 14 weeks fetus Stat Exams 02/11/25 15:26 Completed US abdomen limited Stat Exams 02/11/25 15:26 Completed XR chest 1V portable Stat Exams 02/11/25 16:01 Completed ABO/RH Type Stat Lab 02/11/25 16:19 Completed Amylase Stat Lab 02/11/25 15:57 Completed Beta HCG,Quantitative Stat Lab 02/11/25 15:57 Completed CBC Stat Lab 02/11/25 15:57 Completed CMP [Comprehensive Metabolic Panel] Stat Lab 02/11/25 15:57 Completed D-Dimer Stat Lab 02/11/25 15:57 Completed UA, C/S IF [Urinalysis, C/S if Indicated] Stat Lab 02/11/25 15:42 Completed Acetaminophen Tab [Tylenol Tab] Med 02/11/25 16:04 Discontinued 650 mg PO X1 ONE Vital Signs Vital signs: Vital Signs Temperature 98.4 F 02/11/25 15:05 Pulse Rate 109 H 02/11/25 15:05 Respiratory Rate 18 02/11/25 15:05 Blood Pressure 157/84 H 02/11/25 15:05 Pulse Oximetry (%) 98 02/11/25 15:05 Oxygen Delivery Method Oxy Mask 02/11/25 15:05 Chest Pain Patient data External records reviewed:: [facility] previous records Clinical information provided by:: patient Social determinants that could affect healthcare access:: none Patient has the following chronic illnesses:: As noted How is presenting disease/condition affected by chronic disease/condition?: no chronic disease Evaluation data The following diagnostics were reviewed and interpreted by me:: lab results, radiology exam(s) and EKG tracing(s) Lab and/or radiology exams considered but not ordered:: Additional Labs and radiology considered, but not ordered as they were not clinically indicated at this time. Interpretation Summary: As noted Medications / Prescriptions Medications or Prescriptions considered but not ordered:: I considered prescription management (both outpatient prescriptions AND drug treatment in the ER) and decided that this was necessary and was prescribed as charted. Thanks has a gun Medication administrations:: Medication Administration History Discontinued Medications Acetaminophen (Acetaminophen 325 Mg Tablet) 650 mg PO X1 ONE Stop: 02/11/25 16:05 Last Admin: 02/11/25 16:29 Dose: 650 mg Documented By: OA pt hand off to [employer] Arpita Consultations Consultation(s) initiated? (list below): No Diagnosis Chest Pain Differential Diagnosis: pneumothorax, atypical chest pain and costochondritis Most likely diagnosis given after review of the tests above:: Chest pain unspecified Admission Indicated Admission indicated?: not indicated Admission Request Was there a request for admission?: No Disposition Plan Disposition Plan: other (specify) Discharge Plan Plan Patient Disposition: HOME (Self Care) Discharge Disposition comment: Stable Prescriptions/Referrals Prescriptions/Med Rec: New acetaminophen 500 mg capsule 500 mg PO Q6H PRN (Reason: pain (scale score 1-3)) Qty: 10 0RF No Action ibuprofen 800 mg tablet 800 mg PO Q8H PRN (Reason: pain) Qty: 30 0RF PNV no.95-ferrous fumarate-FA [] 28 mg iron- 800 mcg tablet 1 tab PO QDAY Patient Comments: TAKE 1 TABLET BY MOUTH EVERY DAY acetaminophen 325 mg Tablet 650 mg PO Q4H PRN (Reason: See Comments) Qty: 90 0RF ibuprofen 400 mg Tablet 800 mg PO Q8H PRN (Reason: See Comments) Qty: 90 0RF Referrals: Stas Diamond MD [Primary Care Provider, Family Practice] - In 1 week Problem List Clinical Impression: Chest pain, pleuritic Patient/Caregiver Discharge Instructions Discharge Activity: as per physical therapy Education Materials: ED Chest Pain, Noncardiac Additional Instructions: Thank you for the opportunity for serving you today. You are stable for discharged . You are advised to: Follow-up with your PCP in 1 to 2 days Return to ED for worsening of symptoms, shortness of breath, fever, worsening chest pain, Increase oral fluids Take medication as prescribed Your chances of having pulmonary embolism at this time is very low however we offer you a CT angiogram of your chest and you can come back anytime if you decided to have 1 taken. Print Language: Frisian Stand Alone Forms: Katerina Award Info., Patient Portal Info Letter
== END 2025-02-11 19:24 | disposition home or self-care (01) ==
PROVIDERS: Physician Assistant; Emergency Provider Family Medicine; PCP Family Medicine
DX: O99.891 Other specified diseases and conditions complicating pregnancy (principal); R07.81 Pleurodynia; R94.31 Abnormal electrocardiogram [ECG] [EKG]; O46.90 Antepartum hemorrhage, unspecified, unspecified trimester
CPT/HCPCS: 36415; 71045; 76705; 76801; 80053; 81001; 82150; 84702; 85025; 85379; 86900; 86901; 93005; 99283; A9270